=== PATIENT | female | born 1935 | race Caucasian/White ===

== ENCOUNTER 2023-01-15 10:19 | Outpatient (CLI) | payer OTHER | END 2023-01-15 10:20 | disposition home or self-care (01) | LOC: CSHMAMMO 10:19 | PROVIDERS: ATTEND Internal Medicine | DX: Z12.31 Encounter for screening mammogram for malignant neoplasm of breast (principal); Z80.3 Family history of malignant neoplasm of breast | CPT/HCPCS: 77063; 77067 ==

== ENCOUNTER 2025-01-28 13:12 | Observation (INO) | payer OTHER ==
[2025-01-28 15:29] VITALS: BMI 30.9
[2025-01-28 15:32] VITALS: BP 126/53; TEMP 98.1
[2025-01-28] MEDS ORDERED: Dextrose 50% Abboject 50 ML SYRINGE SLOW IVP PRN (18:07)
[2025-01-28] MEDS ORDERED: Ondansetron PF 4 MG/2 ML Vial IVP PRN (18:07)
[2025-01-28] MEDS ORDERED: Guaifenesin DM 100-10/5 ML UDCUP PO PRN (18:07)
[2025-01-28] MEDS ORDERED: Glucagon 1 MG/ML KIT IM PRN (18:07)
[2025-01-28] MEDS ORDERED: Acetaminophen 325 MG TAB PO PRN (18:07)
[2025-01-28] MEDS ORDERED: Electrolyte Replacement Protocol 1 EACH FS SCH (18:15)
[2025-01-28] MEDS ORDERED: PHOS-NAK 1 PKT PACK PO PRN (18:30)
[2025-01-28] MEDS ORDERED: Magnesium 2 GM/50 ML(in water) 2 GM in Premix 1 BAG IVPB PRN (18:30)
[2025-01-28] MEDS ORDERED: Potassium Chloride 20 MEQ in Premix 1 BAG IVPB PRN (18:30)
[2025-01-28 18:57] LABS: Anion Gap 14 mmol/L (10-20); BUN (Urea Nitrogen) 13 mg/dL (9.8-20.1); Calc. Creatinine Clearance 60 mL/min (70-130); Calcium 8.7 mg/dL (7.8-10.44); Carbon Dioxide 24 mmol/L (23-31); Chloride 99 mmol/L (98-107); Glucose 136 mg/dL (83-110); Magnesium 1.5 mg/dL (1.6-2.6); Potassium 3.0 mmol/L (3.5-5.1); Sodium 134 mmol/L (136-145)
[2025-01-28 19:19] LABS: Troponin I 0.018 ng/mL (< 0.028)
[2025-01-28] MEDS: Rosuvastatin 20 MG TAB PO SCH (19:56)
[2025-01-28] MEDS: Famotidine/PF 20 mg/2ml Vial SLOW IVP SCH (19:56)
[2025-01-28] MEDS: VANCOMYCIN 1.75 GM/350 ML BAG 1.75 GM in Premix 1 BAG IVPB SCH (20:39)
[2025-01-29] MEDS ORDERED: Enoxaparin 40 MG (0.4 mL) SYRINGE SC SCH (09:00)
[2025-01-29] MEDS ORDERED: Calcium Carbonate 600 MG + Vit D TAB PO SCH (09:00)
[2025-01-29] MEDS ORDERED: VANCOMYCIN 1.25 GM/250 ML BAG 1.25 GM in Premix 1 BAG IVPB SCH (20:00)
== END 2025-01-28 20:45 | disposition short-term general hospital (02) ==
LOC: CSHTELE 14:49
PROVIDERS: ADMIT Internal Medicine; ATTEND Internal Medicine
DX: A41.9 Sepsis, unspecified organism (principal); I12.9 Hypertensive chronic kidney disease with stage 1 through stage 4 chronic kidney disease, or unspecified chronic kidney disease; N18.30 Chronic kidney disease, stage 3 unspecified; E11.22 Type 2 diabetes mellitus with diabetic chronic kidney disease; E78.5 Hyperlipidemia, unspecified; K21.9 Gastro-esophageal reflux disease without esophagitis; Z79.899 Other long term (current) drug therapy
CPT/HCPCS: 80048; 83735; 84484; J1308; J2919; J3375; 36415; 96374; 96375; G0378